=== PATIENT | female | born 1950 | race Caucasian/White ===

== ENCOUNTER → 2016-06-25 | Outpatient (CLI) | payer OTHER ==
[~2016-06-25] MED LIST: ADVI200C5 PO; ALPR.25 PO; CHOL1CAP60 PO; META48.53 PO; OMEG100037 PO; REST15CA PO; SOMA350T PO; ZANTTAB PO
[2016-06-25 11:11] LABS: AUTOMATED NEUTROPHIL # 2.1 TH/MM3 (1.8-7.7); BASOPHIL % 0.7 % (0.0-2.0); EOSINOPHIL # 0.1 TH/MM3 (0-0.4); EOSINOPHIL % 1.7 % (0.0-4.0); HEMATOCRIT 41.4 % (35.0-46.0); HEMO FLAGS DIFF FINAL; LYMPH % 38.3 % (9.0-44.0); LYMPHOCYTE # 1.6 TH/MM3 (1.0-4.8); MEAN CELL VOLUME 94.2 FL (80.0-100.0); MEAN CORPUSCULAR HEMOGLOBIN 30.9 PG (27.0-34.0); MEAN CORPUSCULAR HGB CONC 32.8 % (32.0-36.0); MONO % 9.6 % (0.0-8.0); NEUT % 49.7 % (16.0-70.0); PLATELET COUNT 207 TH/MM3 (150-450); RED BLOOD COUNT 4.39 MIL/MM3 (4.00-5.30); RED CELL DISTRIBUTION WIDTH 12.2 % (11.6-17.2); WHITE BLOOD COUNT 4.2 TH/MM3 (4.0-11.0)
[2016-06-25 12:43] LABS: ALKALINE PHOSPHATASE 58 U/L (45-117); ALT (GPT) 23 U/L (10-53); ANION GAP 8 MEQ/L (5-15); AST (GOT) 11 U/L (15-37); BICARBONATE 29.3 MEQ/L (21.0-32.0); BLOOD UREA NITROGEN 12 MG/DL (7-18); CHLORIDE 104 MEQ/L (98-107); GLOMERULAR FILTRATION RATE 75 ML/MIN (>89); GLUCOSE,FASTING 88 MG/DL (74-99); POTASSIUM 3.7 MEQ/L (3.5-5.1); SODIUM (NA) 141 MEQ/L (136-145); TOTAL BILIRUBIN ADULT 0.5 MG/DL (0.2-1.0)
== END ==
LOC: OLAB 10:58
PROVIDERS: ATTEND Family Medicine
DX: R42 Dizziness and giddiness (principal)
CPT/HCPCS: 80053; 85025

== ENCOUNTER → 2017-02-25 | Outpatient (CLI) | payer MEDICARE ==
[2017-02-25 13:49] LABS: HDL CHOLESTEROL 87.2 MG/DL (40.0-60.0)
== END ==
LOC: OLAB 07:51
PROVIDERS: ATTEND Family Medicine
DX: E78.2 Mixed hyperlipidemia (principal); R53.83 Other fatigue
CPT/HCPCS: 36415; 80061; 84443

== ENCOUNTER → 2017-11-07 | Day surgery (SDC) | payer MEDICARE ==
[~2017-11-07] VITALS: Ht 157.5 cm; Wt 56.5 kg
[~2017-11-07] MED LIST changes: -ADVI200C5 PO; +APREPITANT 40 MG CAP ONE; +BUPIVACAINE HCL PF 0.5% 10 ML VIAL ONE; +CENTCHW4 CHEW; +CHLORHEXIDINE GLUCONATE 2 % 1 PACK (2 CLOTHS) TOPICAL PRN; -CHOL1CAP60 PO; +CHOL200016 PO; +LACTATED RINGER'S 1000 ML IV PRN; +LIDOCAINE HCL 2% 50 ML VIAL ONE; +METOPROLOL TARTRATE 25 MG TAB PO PRN; +MIDAZOLAM HCL 2 MG/2 ML VIAL ONE; +NEOMYCIN/POLYMYXIN 1 ML G.U. IRRIGANT ONE; +NORC5TAB PO; -OMEG100037 PO; +OMEGCAP PO; +POVIDONE IODINE 5% (ANTISEPSIS KIT) 4 APPLICATIONS EACH NARE PRN; +SODIUM CHLORID 0.9% 500 ML IV PRN; +ceFAZolin 1,000 MG/NS 100 ML IV SCH
--- NOTE | 2017-11-07 10:22 | MP ---
cc: Rolf Nation MD DATE OF OPERATION: 11/07/2017 DATE OF OPERATION: 11/07/2017 PREOPERATIVE DIAGNOSIS: Left ring finger mass. POSTOPERATIVE DIAGNOSIS: Left ring finger mass. PROCEDURE PERFORMED: Left ring finger mass excisional biopsy. SURGEON: Rolf Nation III, PROCEDURE: The patient was brought to the operating room, placed supine on the operating table. After the correct side and site of surgery were verified by members of each team in the room multiple times including the patient and myself, and after adequate preoperative markings and preoperative written consent was verified by everyone, and after preoperative timeout was performed to everyone's satisfaction, after adequate IV sedation had been achieved, the left upper extremity was prepped and draped in traditional sterile surgical fashion. A 50/50 mixture of 2% plain lidocaine and 0.5% plain Marcaine was infiltrated in the skin and subcutaneous tissue on the dorsal aspect of the left ring finger where the incision was planned. The limb was gently exsanguinated with an Yinka wrap and a highly placed well-padded axillary tourniquet was inflated to 200 mmHg for a total of 11 minutes. A transversely oriented incision within a skin crease was made dorsally over the PIP joint and carried down bluntly through the skin and subcutaneous tissue. Extensor tendon/mechanism was visualized and a small cystic mass resembling a ganglion cyst was seen projecting through it. It was excised in its entirety and passed off the field as a specimen, leaving a finite 3 mm hole in the extensor mechanism just proximal to the PIP joint. The tissue deep to it was debrided and any synovitis was excised. There were no other anatomic abnormalities or evidence of mass effect anywhere. Thorough irrigation with 1 liters' worth of saline was performed. The defect in the extensor tendon was then completely closed using a 6-0 Prolene suture in a [id number] and then an oversewn manner causing no increase in tension in the extensor mechanism. Passive range of motion was full and unrestricted of the left finger at the PIP joint in particular. Thorough irrigation was performed again. The skin edges were reapproximated using running 5-0 nylon suture. The hand and arm were thoroughly cleansed and dried. Betadine and Adaptic dressing was applied on top of the wound followed by a bulky soft dressing. The axillary tourniquet was released. The hand and all fingers became immediately soft, pink and warm and had brisk capillary refill of less than 2 seconds. The ring finger also had brisk capillary refill of less than 2 seconds. The patient was awakened from anesthesia and transported to the Postanesthesia Care Unit awake and in stable condition at the end of the case. Sponge, needle and instrument counts were correct at the end of the case as reported by the nurses in the room. MD SANJANA Arreguin/SHANTEL , 10:04 AM , 10:21 AM
[2017-11-07 10:45] VITALS: BP 100/57; PULSE 56; RESP 16; TEMP 98; O2SAT 100
== END | disposition home or self-care (01) ==
LOC: PHSDC 07:03
PROVIDERS: ATTEND Orthopaedic Surgery Hand Surgery
DX: R22.32 Localized swelling, mass and lump, left upper limb (principal); E78.2 Mixed hyperlipidemia; K21.9 Gastro-esophageal reflux disease without esophagitis; Z85.3 Personal history of malignant neoplasm of breast
CPT/HCPCS: 01810; 26160; 88304; J0690; J2250; J7120; J8501; 88305